=== PATIENT | female | born 1980 | race Hispanic/Latino ===

== ENCOUNTER 2017-11-02 21:44 | Emergency (ER) | payer OTHER ==
[2017-11-02 21:55] VITALS: TEMP 98.1
--- NOTE | 2017-11-02 22:28 | ED PDOC ---
HPI: Abdomen Chief Complaint (Nursing): Abdominal Pain Chief Complaint (Provider): abdominal pain History Per: Patient History/Exam Limitations: no limitations Onset/Duration Of Symptoms: Days (3), Waxing/Waning Current Symptoms Are (Timing): Still Present Location Of Pain/Discomfort: Periumbilical Associated Symptoms: Nausea, Vomiting Additional Complaint(s): 37 y/o female presents for evaluation of intermittent periumbilical pain x 3 days. Associated abdominal bloating, nausea with vomiting; states no vomiting today but only able to drink one gatorade due to nausea. Denies fever, chest pain, shortness of breath, palpitations, changes in bowel movements, urinary symptoms, recent travel, sick contacts. Minimal relief with pepto bismol. Past Medical History Reviewed: Historical Data, Nursing Documentation, Vital Signs Vital Signs: Last Vital Signs Temp 98.1 F 11/02/17 21:51 Pulse 64 11/02/17 21:51 Resp 16 11/02/17 21:51 BP 127/83 11/02/17 21:51 Pulse Ox 98 11/02/17 22:28 - Medical History PMH: No Chronic Diseases - Surgical History Surgical History: No Surg Hx - Family History Family History: States: No Known Family Hx - Living Arrangements Living Arrangements: With Family - Social History Alcohol: Social Drugs: Denies - Home Medications Home Medications: Ambulatory Orders Medication Instructions Recorded Ondansetron ODT [Zofran ODT] 4 mg PO Q8 PRN #10 odt 11/03/17 - Allergies Allergies/Adverse Reactions: Allergies Allergy/AdvReac Type Severity Reaction Status Date / Time No Known Allergies Allergy Verified 11/02/17 21:51 Review of Systems ROS Statement: Except As Marked, All Systems Reviewed And Found Negative Gastrointestinal: Positive for: Nausea, Abdominal Pain Physical Exam - Reviewed Nursing Documentation Reviewed: Yes Vital Signs Reviewed: Yes - Physical Exam Appears: Positive for: Well, Non-toxic, No Acute Distress Head Exam: Positive for: ATRAUMATIC, NORMAL INSPECTION, NORMOCEPHALIC Skin: Positive for: Normal Color Eye Exam: Positive for: Normal appearance ENT: Positive for: Normal ENT Inspection Cardiovascular/Chest: Positive for: Regular Rate, Rhythm Respiratory: Positive for: Normal Breath Sounds Gastrointestinal/Abdominal: Positive for: Bowel Sounds, Soft, Tenderness ( periumbilical ) Back: Positive for: Normal Inspection Extremity: Positive for: Normal ROM Neurologic/Psych: Positive for: Alert, Oriented - Laboratory Results Result Diagrams: 11/02/17 22:49 11/02/17 22:49 - ECG O2 Sat by Pulse Oximetry: 98 - Progress ED Course And Treament: labs, CT abd/pelvis, urine, IV toradol, IV zofran EXAM: CT Abdomen and Pelvis With Intravenous Contrast CLINICAL HISTORY: 37 years old, female; Pain; Abdominal pain; Periumbilical; Additional info: Periumbilical pain TECHNIQUE: Axial computed tomography images of the abdomen and pelvis with intravenous contrast. All CT scans at this facility use at least one of these dose optimization techniques: automated exposure control; mA and/or kV adjustment per patient size (includes targeted exams where dose is matched to clinical indication); or iterative reconstruction. CONTRAST: 90 mL of [id number] administered intravenously. COMPARISON: No relevant prior studies available. FINDINGS: Lung bases: The visualized portions of the lung bases are normal. ABDOMEN: Liver: The liver is heterogeneous in attenuation in its superior aspect, which may be related to fatty infiltration, although other hepatic lesions cannot be excluded. Mild hepatomegaly. Gallbladder and bile ducts: The gallbladder is normal. No calcified stones. No ductal dilation. Pancreas: The pancreas is normal. Spleen: Unremarkable. Adrenals: The adrenal glands are normal. Kidneys and ureters: The kidneys are normal. Stomach and bowel: Mild diverticulosis is present in the sigmoid and descending colon. PELVIS: Appendix: A normal appendix is identified. Bladder: The bladder is empty and difficult to evaluate. Reproductive: Unremarkable as visualized. ABDOMEN and PELVIS: Intraperitoneal space: Unremarkable. No free air. No significant fluid collection. Bones/joints: No acute fracture. No dislocation. Soft tissues: There is a fat-containing umbilical hernia. Vasculature: Unremarkable. No abdominal aortic aneurysm. Lymph nodes: There are increased number of borderline enlarged mesenteric lymph nodes. IMPRESSION: There are increased number of borderline enlarged mesenteric lymph nodes. Please correlate for the possibility of mesenteric adenitis. The liver is heterogeneous in attenuation in its superior aspect, which may be related to fatty infiltration, although other hepatic lesions cannot be excluded. On re-eval, patient states she is feeling better. Patient educated on findings, discharged with rx Zofran Advised follow up PMD 2-3 days. Fluids. NSAIDs. Return precautions given Disposition - Clinical Impression Clinical Impression: Abdominal pain, Mesenteric adenitis - Patient ED Disposition Is Patient to be Admitted: No Counseled Patient/Family Regarding: Studies Performed, Diagnosis, Need For Followup, Rx Given - Disposition Disposition: Routine/Home Disposition Time: 00:43 Condition: IMPROVED Prescriptions: Ondansetron ODT [Zofran ODT] 4 mg PO Q8 PRN #10 odt PRN Reason: Nausea/Vomiting Instructions: Mesenteric Lymphadenitis, Acute Abdomen (Belly Pain), Adult (DC) Forms: [employer] ([place]ron[place])
[2017-11-02 22:52] LABS: BASO % 0.4 % (0.0-2.0); EOS # 0.1 K/uL (0.0-0.7); EOS % 1.5 % (0.0-4.0); HEMOGLOBIN 12.9 g/dL (12.0-16.0); LYMPH # 2.7 K/uL (1.0-4.3); LYMPH % 51.1 % (20.0-40.0); MEAN CELL VOLUME 89.6 fl (81.0-99.0); MEAN CORPUSCULAR HEMOGLOBIN 30.2 pg (27.0-31.0); MEAN CORPUSCULAR HGB CONC 33.7 g/dL (33.0-37.0); MEAN PLATELET VOLUME 7.9 fl (7.2-11.7); MONO # 0.7 K/uL (0.0-0.8); MONO % 12.2 % (0.0-10.0); NEUT # 1.9 K/uL (1.8-7.0); NEUT % 34.8 % (50.0-75.0); NRBC % 0.1 % (0.0-0.0); RBC 4.26 Mil/uL (3.80-5.20); WHITE BLOOD COUNT 5.4 K/uL (4.8-10.8)
[2017-11-02 23:07] LABS: ALB/GLOB RATIO 1.2 (1.0-2.1); ALT/SGPT 22 U/L (9-52); AST/SGOT 24 U/L (14-36); BLOOD UREA NITROGEN 16 mg/dl (7-17); CALCIUM 9.1 mg/dL (8.4-10.2); GFR AFRICAN-AMERICAN > 60; GFR NON-AFRICAN AMERICAN > 60; LIPASE 139 U/L (23-300)
[2017-11-02] MEDS ORDERED: Sodium Chloride 0.9% 50 ML IV ONE (23:19)
[2017-11-02] MEDS ORDERED: Iohexol 300 100 ML IJ ONE (23:19)
[2017-11-03 02:32] VITALS: BP 120/82; PULSE 57; RESP 17; O2SAT 99
--- NOTE | 2017-11-03 10:41 | CT ---
Date of service: 11/02/2017 PROCEDURE: CT Abdomen and Pelvis with contrast HISTORY: periumbilical pain COMPARISON: None. TECHNIQUE: Contrast dose: 90 cc of Omnipaque 300. Axial and reformatted coronal and sagittal CT images of the abdomen and pelvis were obtained after IV and oral contrast administration. Radiation dose: Total exam DLP = 398.01 mGy-cm. This CT exam was performed using one or more of the following dose reduction techniques: Automated exposure control, adjustment of the mA and/or kV according to patient size, and/or use of iterative reconstruction technique. FINDINGS: LOWER THORAX: Unremarkable. LIVER: Unremarkable. No gross lesion or ductal dilatation. GALLBLADDER AND BILE DUCTS: Unremarkable. PANCREAS: Unremarkable. No gross lesion or ductal dilatation. SPLEEN: Unremarkable. ADRENALS: Unremarkable. No mass. KIDNEYS AND URETERS: Unremarkable. No hydronephrosis. No solid mass. VASCULATURE: Unremarkable. No aortic aneurysm. BOWEL: There are scattered colonic diverticulosis noted without evidence of diverticulitis. . No obstruction. No gross mural thickening. The assessment of the GI system is suboptimal as most of the small and large bowel loops are not opacified with oral contrast. APPENDIX: Normal appendix. PERITONEUM: Unremarkable. No free fluid. No free air. LYMPH NODES: Prominent mesenteric lymph nodes are noted likely represent mesenteric adenitis. BLADDER: Unremarkable. REPRODUCTIVE: Unremarkable. BONES: No acute fracture. OTHER FINDINGS: None. IMPRESSION: No evidence of appendicitis. Colonic diverticulosis without definite evidence of diverticulitis. Prominent mesenteric lymph nodes may represent mesenteric adenitis in appropriate clinical setting. Preliminary report was submitted by [facility].
== END 2017-11-03 01:58 | disposition home or self-care (01) ==
LOC: H.ER 21:44
DX: I88.0 Nonspecific mesenteric lymphadenitis (principal); K57.30 Diverticulosis of large intestine without perforation or abscess without bleeding
CPT/HCPCS: 74177; 80053; 81025; 83690; 85025; 96374; 96375; 99284; J1885; J2405; Q9967